=== PATIENT | female | born 1990 | race Two or more races ===

== ENCOUNTER 2016-11-02 20:34 | Emergency (ER) | payer MEDICAID, OTHER ==
[~2016-11-02] VITALS: Ht 160 cm; Wt 93.0 kg
[2016-11-02 21:05] VITALS: BP 128/71
== END 2016-11-02 21:55 | disposition home or self-care (01) ==
LOC: ER 20:35
DX: B34.9 Viral infection, unspecified (principal); R10.13 Epigastric pain; Z98.890 Other specified postprocedural states
CPT/HCPCS: 99283; A4606; Z7610